=== PATIENT | male | born 1995 | race Caucasian/White ===

== ENCOUNTER 2018-12-15 05:29 | Emergency (ER) | payer OTHER ==
--- OUTSIDE RECORDS SUMMARY | 2018-12-15 05:31 | XMS REPORT ---
:1995 Author Organization [facility] Address [address] [place] [address] [address] [place] [address] Care Team Providers Name Role Phone Unavailable Unavailable Unavailable Problems This patient has no known problems. Allergies, Adverse Reactions, Alerts This patient has no known allergies or adverse reactions. Medications This patient has no known medications. Encounters Start End Encounter Admission Attending Care Care Encounter Date/Time Date/Time Type Type Clinicians Facility Department ID 2017-11-09 2017-11-09 Outpatient [facility] [id number] 00:00:00 00:00:00 2017-10-12 2017-10-12 Outpatient [facility] [id number] 09:24:10 09:24:10
[2018-12-15] MEDS ORDERED: LORAZEPAM 0.5 MG TABLET ONE (06:16)
--- NOTE | 2018-12-15 06:36 | ER ---
Nurse's Notes [facility] Name: Stuart Rodriguez Age: 23 yrs Sex: Male : 1995 Arrival Date: 12/15/2018 Time: 05:31 Bed 8 Private MD: Diagnosis: Anxiety disorder, unspecified Presentation: 12/15 05:41 Presenting complaint: Mother states: Has been having panic attacks. Had another episode tl2 last night at 2130 and couldn't go to sleep. Took 0.25 mg of xanax at 2200 last night. Pt reports chest pain with anxiety. Transition of care: patient was not received from another setting of care. Onset of symptoms was December 14, 2018 at 21:30. Risk Assessment: Do you want to hurt yourself or someone else? Patient reports no desire to harm self or others. Initial Sepsis Screen: Does the patient meet any 2 criteria? No. Patient's initial sepsis screen is negative. Does the patient have a suspected source of infection? No. Patient's initial sepsis screen is negative. Care prior to arrival: None. 05:41 Method Of Arrival: Ambulatory tl2 05:41 Acuity: TESSA 4 tl2 Triage Assessment: 05:44 General: Appears in no apparent distress. uncomfortable, Behavior is cooperative, tl2 appropriate for age, anxious. Pain: Complains of pain in chest Pain currently is 5 out of 10 on a pain scale. Quality of pain is described as pressure. Neuro: Level of Consciousness is awake, alert, obeys commands, Oriented to person, place, time, situation. Cardiovascular: Reports chest pain, Patient's skin is warm and dry. Rhythm is sinus rhythm Chest pain is described as mild, quality is pressure, is aggravated by anxiety. Respiratory: Airway is patent Respiratory effort is even, unlabored, Respiratory pattern is regular, symmetrical. GI: No signs and/or symptoms were reported involving the gastrointestinal system. : No signs and/or symptoms were reported regarding the genitourinary system. Derm: Skin is pink, warm \T\ dry. Historical: - Allergies: 05:44 No Known Allergies; tl2 - Home Meds: 05:44 aspirin 81 mg Oral chew 1 tab as needed [Active]; Xanax 0.25 mg Oral tab twice a day tl2 [Active]; - PMHx: 05:44 Anxiety; Autism; ear infections; Seizures; Pneumonia; tl2 - PSHx: 05:44 Ear Tubes; tl2 - Immunization history:: Adult Immunizations up to date. - Social history:: Smoking status: Patient/guardian denies using tobacco. - Ebola Screening: : No symptoms or risks identified at this time. Screenin:47 Abuse screen: Denies threats or abuse. Nutritional screening: No deficits noted. tl2 Tuberculosis screening: No symptoms or risk factors identified. Fall Risk None identified. Assessment: 05:46 General: see triage assessment. tl2 06:31 Pain: Pain does not radiate. Pain began 0 last night. ak1 Vital Signs: 05:44 BP 118 / 84; Pulse 84; Resp 18; Temp 98.1(O); Pulse Ox 97% on R/A; Weight 113.4 kg; tl2 Height 6 ft. 1 in. (185.42 cm); Pain 5/10; 06:30 BP 111 / 81; Pulse 74; Pulse Ox 97% on R/A; ak1 05:44 Body Mass Index 32.98 (113.40 kg, 185.42 cm) tl2 ED Course: 05:31 Patient arrived in ED. es 05:43 Triage completed. tl2 05:44 Arm band placed on right wrist. tl2 05:47 Patient has correct armband on for positive identification. Placed in gown. Bed in low tl2 position. Call light in reach. Side rails up X 1. Adult w/ patient. Pulse ox on. NIBP on. 05:47 EKG done. Patient maintains SpO2 saturation greater than 95% on room air. tl2 05:59 Aiyana Guzman FNP-C is [facility]. kb 05:59 Owen Adan MD is Attending Physician. kb 06:38 Stefanie Miller, ANA PAULA is Primary Nurse. ak1 06:39 No provider procedures requiring assistance completed. Patient did not have IV access ak1 during this emergency room visit. Administered Medications: 06:07 Drug: Ativan 0.5 mg Route: PO; tl2 06:31 Follow up: Response: No adverse reaction ak1 Outcome: 06:36 Discharge ordered by . kb 06:39 Discharged to home ambulatory, with family. ak1 06:39 Condition: good 06:39 Discharge instructions given to patient, family, Instructed on discharge instructions, follow up and referral plans. Demonstrated understanding of instructions, follow-up care. 06:40 Patient left the ED. ak1 Signatures: Aiyana Guzman, STACEY LA-Madison Escobedo Amber RN RN ak1 Nimco Alford RN RN tl2
--- NOTE | 2018-12-15 06:36 | EDPHYS ---
Physician Documentation [facility] Name: Stuart Rodriguez Age: 23 yrs Sex: Male : 1995 Arrival Date: 12/15/2018 Time: 05:31 Bed 8 Private MD: ED Physician Owen Adan HPI: 12/15 06:06 This 23 yrs old Male presents to ER via Ambulatory with complaints of kb Anxiety, Chest Pain. 06:07 The patient presents to the emergency department with anxiety, great-grandmother kb declining in health. Onset: The symptoms/episode began/occurred last night. Past psychiatric history: Prior diagnosis: anxiety, Psychiatric medications include: Xanax. Associated signs and symptoms: Pertinent positives; anxiety, Pertinent negatives: abdominal pain, chest pain, chills, delusions, depression, fever, hallucinations, headache, homicidal ideation, nausea, night sweats, palpitations, paranoia, shortness of breath, substance abuse, suicide ideation, tremor, vomiting. Severity of symptoms: At their worst the symptoms were mild moderate in the emergency department the symptoms are unchanged. The patient has experienced similar episodes in the past, multiple times, and the symptoms today are exactly the same. The patient has not recently seen a physician. Pt states he is here because he started having a panic attack last night at 2200 and it hasn't let up. Took his prescribed 0.25mg of xanax last night, but it did not help. Grandmother (POA) states his PCP that prescribes the medication told them to come to the ER if the xanax doesn't work instead of trying another tab. . Historical: - Allergies: 05:44 No Known Allergies; tl2 - Home Meds: 05:44 aspirin 81 mg Oral chew 1 tab as needed [Active]; Xanax 0.25 mg Oral tab twice a day tl2 [Active]; - PMHx: 05:44 Anxiety; Autism; ear infections; Seizures; Pneumonia; tl2 - PSHx: 05:44 Ear Tubes; tl2 - Immunization history:: Adult Immunizations up to date. - Social history:: Smoking status: Patient/guardian denies using tobacco. - Ebola Screening: : No symptoms or risks identified at this time. ROS: 06:07 Constitutional: Negative for fever, chills, and weight loss, ENT: Negative for injury, kb pain, and discharge, Neck: Negative for injury, pain, and swelling, Cardiovascular: Negative for chest pain, palpitations, and edema, Respiratory: Negative for shortness of breath, cough, wheezing, and pleuritic chest pain, Abdomen/GI: Negative for abdominal pain, nausea, vomiting, diarrhea, and constipation, Back: Negative for injury and pain, : Negative for injury, bleeding, discharge, and swelling, MS/Extremity: Negative for injury and deformity, Skin: Negative for injury, rash, and discoloration, Neuro: Negative for headache, weakness, numbness, tingling, and seizure. 06:07 Psych: Positive for anxiety, Negative for depression, drug dependence, alcohol dependence, auditory hallucinations, visual hallucinations, homicidal ideation, insomnia, suicide gesture, suicidal ideation. Exam: 06:07 Constitutional: This is a well developed, well nourished patient who is awake, alert, kb and in no acute distress. Head/Face: Normocephalic, atraumatic. Neck: Trachea midline, no thyromegaly or masses palpated, and no cervical lymphadenopathy. Supple, full range of motion without nuchal rigidity, or vertebral point tenderness. No Meningismus. Chest/axilla: Normal chest wall appearance and motion. Nontender with no deformity. No lesions are appreciated. Cardiovascular: Regular rate and rhythm with a normal S1 and S2. No gallops, murmurs, or rubs. Normal PMI, no JVD. No pulse deficits. Respiratory: Lungs have equal breath sounds bilaterally, clear to auscultation and percussion. No rales, rhonchi or wheezes noted. No increased work of breathing, no retractions or nasal flaring. Abdomen/GI: Soft, non-tender, with normal bowel sounds. No distension or tympany. No guarding or rebound. No evidence of tenderness throughout. Skin: Warm, dry with normal turgor. Normal color with no rashes, no lesions, and no evidence of cellulitis. MS/ Extremity: Pulses equal, no cyanosis. Neurovascular intact. Full, normal range of motion. Neuro: Awake and alert, GCS 15, oriented to person, place, time, and situation. Cranial nerves II-XII grossly intact. Motor strength 5/5 in all extremities. Sensory grossly intact. Cerebellar exam normal. Normal gait. Psych: Awake, alert, with orientation to person, place and time. Behavior, mood, and affect are within normal limits. Vital Signs: 05:44 BP 118 / 84; Pulse 84; Resp 18; Temp 98.1(O); Pulse Ox 97% on R/A; Weight 113.4 kg; tl2 Height 6 ft. 1 in. (185.42 cm); Pain 5/10; 06:30 BP 111 / 81; Pulse 74; Pulse Ox 97% on R/A; ak1 05:44 Body Mass Index 32.98 (113.40 kg, 185.42 cm) tl2 MDM: 05:59 Patient medically screened. kb 06:07 Data reviewed: vital signs, nurses notes. Data interpreted: Pulse oximetry: on room air kb is 97 %. Interpretation: normal. Counseling: I had a detailed discussion with the patient and/or guardian regarding: the historical points, exam findings, and any diagnostic results supporting the discharge/admit diagnosis, the need for outpatient follow up, a family practitioner, to return to the emergency department if symptoms worsen or persist or if there are any questions or concerns that arise at home. 03 05:48 Order name: EKG; Complete Time: 05:49 tl2 03 05:48 Order name: EKG - Nurse/Tech; Complete Time: 05:49 tl2 Administered Medications: 06:07 Drug: Ativan 0.5 mg Route: PO; tl2 06:31 Follow up: Response: No adverse reaction ak1 Disposition: 07:05 Co-signature as Attending Physician, Owen Adan MD I agree with the assessment and tw4 plan of care. Disposition: 12/15/18 06:36 Discharged to Home. Impression: Anxiety disorder, unspecified. - Condition is Stable. - Discharge Instructions: Panic Attacks, [id number]. - Medication Reconciliation Form, Thank You Letter, Antibiotic Education, Prescription Opioid Use form. - Follow up: Emergency Department; When: As needed; Reason: Worsening of condition. Follow up: Private Physician; When: 2 - 3 days; Reason: Recheck today's complaints, Continuance of care, Re-evaluation by your physician. Signatures: Aiyana Guzman FNP-C FNP-Stefanie Scales RN RN ak1 Nimco Alford RN RN tl2 Owen Adan MD MD tw4 Corrections: (The following items were deleted from the chart) 06:40 06:36 12/15/2018 06:36 Discharged to Home. Impression: Anxiety disorder, unspecified. ak1 Condition is Stable. Discharge Instructions: Panic Attacks, [id number]. Forms are Medication Reconciliation Form, Thank You Letter, Antibiotic Education, Prescription Opioid Use. Follow up: Emergency Department; When: As needed; Reason: Worsening of condition. Follow up: Private Physician; When: 2 - 3 days; Reason: Recheck today's complaints, Continuance of care, Re-evaluation by your physician. kb
--- NOTE | 2018-12-15 21:44 | EKG ---
Test Date: 2018-12-15 Test Time: 04:41:56 Family Preservation Officer: AMBER MEASUREMENT RESULTS: Intervals: Rate: 77 CO: 140 QRSD: 102 QT: 390 QTc: 441 [place]: P: 45 CO: 140 QRS: 51 T: 44 INTERPRETIVE STATEMENTS: Normal sinus rhythm with sinus arrhythmia Incomplete right bundle branch block Borderline ECG Compared to ECG 10/28/2017 03:05:27 No significant changes Electronically Signed On 12-15-18 21:44:08 CDT by Maciel Garcia
== END 2018-12-15 06:40 | disposition home or self-care (01) ==
LOC: ER 05:29
DX: F41.9 Anxiety disorder, unspecified (principal); G40.909 Epilepsy, unspecified, not intractable, without status epilepticus; Z79.82 Long term (current) use of aspirin
CPT/HCPCS: 93005; 99284

== ENCOUNTER 2019-05-09 21:45 | Emergency (ER) | payer OTHER ==
--- OUTSIDE RECORDS SUMMARY | 2019-05-09 21:47 | XMS REPORT ---
:1995 [facility] Address [facility] [address] [place] [id number] Care Team Providers Name Role Phone Unavailable Unavailable Unavailable Problems This patient has no known problems. Allergies, Adverse Reactions, Alerts This patient has no known allergies or adverse reactions. Medications This patient has no known medications. Encounters Start End Encounter Admission Attending Care Care Encounter Date/Time Date/Time Type Type Clinicians Facility Department ID 2017-11-09 2017-11-09 Outpatient [facility] [id number] 00:00:00 00:00:00 2017-10-12 2017-10-12 Outpatient [facility] [id number] 09:24:10 09:24:10
--- NOTE | 2019-05-09 23:39 | ER ---
Nurse's Notes [facility] Name: Stuart Rodriguez Age: 23 yrs Sex: Male : 1995 Arrival Date: 05/09/2019 Time: 21:49 Bed 5 Private MD: Diagnosis: Ingrowing nail Presentation: 05/09 22:15 Presenting complaint: Mother states: that pt has infection to right great toe for the fc past week. Unable to wear boots to work so he needs a note. Has seen foot already for this issue. Transition of care: patient was not received from another setting of care. Onset of symptoms was May 03, 2019. Risk Assessment: Do you want to hurt yourself or someone else? Patient reports no desire to harm self or others. Initial Sepsis Screen: Does the patient meet any 2 criteria? No. Patient's initial sepsis screen is negative. Does the patient have a suspected source of infection? No. Patient's initial sepsis screen is negative. Care prior to arrival: None. 22:15 Method Of Arrival: Ambulatory fc 22:15 Acuity: TESSA 3 Triage Assessment: 22:19 General: Appears comfortable, obese, Behavior is calm, cooperative, appropriate for age. Pain: Complains of pain in Right first toenail Quality of pain is described as aching, throbbing, Pain began 1 week ago Is continuous, Aggravated by increased activity, repositioning, weight bearing. EENT: No deficits noted. Neuro: Level of Consciousness is awake, alert, obeys commands, Oriented to person, place, time, situation, Appropriate for age. Cardiovascular: No deficits noted. Respiratory: No deficits noted. GI: No deficits noted. : No deficits noted. Derm: Skin is pink, warm \T\ dry. Derm: Reports drainage and redness to right great toe. Musculoskeletal: Circulation, motion, and sensation intact. Capillary refill Range of motion: intact in all extremities. Historical: - Allergies: 22:18 No Known Allergies; fc - Home Meds: 22:18 Xanax 0.25 mg Oral tab twice a day [Active]; aspirin 81 mg Oral chew 1 tab as needed fc [Active]; - PMHx: 22:18 Anxiety; ear infections; Autism; Seizures; Pneumonia; fc - PSHx: 22:18 Ear Tubes; fc - Immunization history:: Last tetanus immunization: up to date. - Social history:: Smoking status: Patient/guardian denies using tobacco, Patient/guardian denies using alcohol, street drugs. - Ebola Screening: : Patient negative for fever greater than or equal to 101.5 degrees Fahrenheit, and additional compatible Ebola Virus Disease symptoms Patient denies exposure to infectious person Patient denies travel to an Ebola-affected area in the 21 days before illness onset. - Family history:: not pertinent. Screenin:12 Abuse screen: Denies threats or abuse. Nutritional screening: No deficits noted. jd3 Tuberculosis screening: No symptoms or risk factors identified. Fall Risk Ambulatory Aid- None/Bed Rest/Nurse Assist (0 pts). Gait- Normal/Bed Rest/Wheelchair (0 pts) Mental Status- Oriented to own ability (0 pts). Total Alonzo Fall Scale indicates No Risk (0-24 pts). Assessment: 23:09 General: Appears in no apparent distress. uncomfortable, Behavior is calm, cooperative, jd3 appropriate for age. Pain: Complains of pain in Right first toenail Quality of pain is described as aching, throbbing. Neuro: Level of Consciousness is awake, alert, obeys commands, Oriented to person, place, time, situation. Cardiovascular: Capillary refill < 3 seconds Patient's skin is warm and dry. Respiratory: Airway is patent Respiratory effort is even, unlabored, Respiratory pattern is regular, symmetrical. GI: No signs and/or symptoms were reported involving the gastrointestinal system. : No signs and/or symptoms were reported regarding the genitourinary system. EENT: No signs and/or symptoms were reported regarding the EENT system. Derm: Skin is intact, Skin is dry, Skin is normal, Skin temperature is warm Wound noted Right first toenail Wound is oozing, red swollen wound from the side of the toenail. Musculoskeletal: Circulation, motion, and sensation intact. Range of motion: intact in all extremities. 05/10 00:00 Reassessment: Patient appears in no apparent distress at this time. Patient and/or jd3 family updated on plan of care and expected duration. Pain level reassessed. Patient is alert, oriented x 3, equal unlabored respirations, skin warm/dry/pink. reported understanding of discharge instructions. Vital Signs: 05/09 22:18 BP 110 / 75; Pulse 83; Resp 18; Temp 97.5(O); Pulse Ox 96% on R/A; Weight 117.93 kg fc (R); Height 6 ft. 1 in. (185.42 cm) (R); Pain 4/10; 22:18 Body Mass Index 34.30 (117.93 kg, 185.42 cm) ED Course: 21:49 Patient arrived in ED. ag3 22:17 Triage completed. 22:18 Arm band placed on Patient placed in waiting room, Patient notified of wait time. 23:02 Parker Nolasco MD is Attending Physician. mariely 23:06 Roberto Hernandez, RN is Primary Nurse. jd3 23:12 Patient has correct armband on for positive identification. Bed in low position. Call jd3 light in reach. Side rails up X 1. Adult w/ patient. 05/10 00:00 No provider procedures requiring assistance completed. Patient did not have IV access jd3 during this emergency room visit. Administered Medications: 00:00 Drug: Bactroban Ointment 2 % 1 application Route: Topical; Site: affected area; 00:00 Drug: Bactrim (160 mg-800 mg (DS) 1 tablet Route: PO; Outcome: 05/09 23:39 [facility] 05/10 00:00 Discharged to home ambulatory, with family. jd3 Condition: stable Discharge instructions given to patient, family, Instructed on discharge instructions, follow up and referral plans. medication usage, Demonstrated understanding of instructions, follow-up care, medications, Prescriptions given X 3. 00:01 Patient left the ED. Signatures: Parker Nolasco MD MD cha Chretien, Felicia, RN RN Roberto Hernandez, RN RN Oanh Balderrama 3
--- NOTE | 2019-05-09 23:40 | EDPHYS ---
Physician Documentation [facility] Name: Stuart Rodriguez Age: 23 yrs Sex: Male : 1995 Arrival Date: 05/09/2019 Time: 21:49 Bed 5 Private MD: LANRE Physician Parker Nolasco HPI: 05/09 23:32 This 23 yrs old Male presents to ER via Ambulatory with complaints of Toe mariely Injury. 23:32 The patient presents with an injury, pain, swelling, tenderness. The complaints affect mariely the right foot, right foot. Context: The problem was sustained at home, resulted from stubbing toe on. Onset: The symptoms/episode began/occurred 3 day(s) ago. Modifying factors: The symptoms are alleviated by elevation of extremity, the symptoms are aggravated by nothing. Associated signs and symptoms: The patient has no apparent associated signs or symptoms. Severity of symptoms: At their worst the symptoms were mild, in the emergency department the symptoms are unchanged. The patient has not experienced similar symptoms in the past. Historical: - Allergies: 22:18 No Known Allergies; fc - Home Meds: 22:18 Xanax 0.25 mg Oral tab twice a day [Active]; aspirin 81 mg Oral chew 1 tab as needed fc [Active]; - PMHx: 22:18 Anxiety; ear infections; Autism; Seizures; Pneumonia; fc - PSHx: 22:18 Ear Tubes; fc - Immunization history:: Last tetanus immunization: up to date. - Social history:: Smoking status: Patient/guardian denies using tobacco, Patient/guardian denies using alcohol, street drugs. - Ebola Screening: : Patient negative for fever greater than or equal to 101.5 degrees Fahrenheit, and additional compatible Ebola Virus Disease symptoms Patient denies exposure to infectious person Patient denies travel to an Ebola-affected area in the 21 days before illness onset. - Family history:: not pertinent. ROS: 23:32 Constitutional: Negative for fever, chills, and weight loss, Eyes: Negative for injury, mariely pain, redness, and discharge, ENT: Negative for injury, pain, and discharge, Neck: Negative for injury, pain, and swelling, Cardiovascular: Negative for chest pain, palpitations, and edema, Respiratory: Negative for shortness of breath, cough, wheezing, and pleuritic chest pain, Abdomen/GI: Negative for abdominal pain, nausea, vomiting, diarrhea, and constipation, Back: Negative for injury and pain, : Negative for injury, bleeding, discharge, and swelling, Skin: Negative for injury, rash, and discoloration, Neuro: Negative for headache, weakness, numbness, tingling, and seizure, Psych: Negative for depression, anxiety, suicide ideation, homicidal ideation, and hallucinations, Allergy/Immunology: Negative for hives, rash, and allergies, Endocrine: Negative for neck swelling, polydipsia, polyuria, polyphagia, and marked weight changes. 23:32 MS/extremity: Positive for decreased range of motion, pain, swelling, tenderness, of the Right first toenail. Exam: 23:32 Constitutional: This is a well developed, well nourished patient who is awake, alert, mariely and in no acute distress. Head/Face: Normocephalic, atraumatic. Eyes: Pupils equal round and reactive to light, extra-ocular motions intact. Lids and lashes normal. Conjunctiva and sclera are non-icteric and not injected. Cornea within normal limits. Periorbital areas with no swelling, redness, or edema. ENT: Nares patent. No nasal discharge, no septal abnormalities noted. Tympanic membranes are normal and external auditory canals are clear. Oropharynx with no redness, swelling, or masses, exudates, or evidence of obstruction, uvula midline. Mucous membranes moist. Neck: Trachea midline, no thyromegaly or masses palpated, and no cervical lymphadenopathy. Supple, full range of motion without nuchal rigidity, or vertebral point tenderness. No Meningismus. Chest/axilla: Normal chest wall appearance and motion. Nontender with no deformity. No lesions are appreciated. Cardiovascular: Regular rate and rhythm with a normal S1 and S2. No gallops, murmurs, or rubs. Normal PMI, no JVD. No pulse deficits. Respiratory: Lungs have equal breath sounds bilaterally, clear to auscultation and percussion. No rales, rhonchi or wheezes noted. No increased work of breathing, no retractions or nasal flaring. Abdomen/GI: Soft, non-tender, with normal bowel sounds. No distension or tympany. No guarding or rebound. No evidence of tenderness throughout. Back: No spinal tenderness. No costovertebral tenderness. Full range of motion. Male : Normal genitalia with no discharge or lesions. Skin: Warm, dry with normal turgor. Normal color with no rashes, no lesions, and no evidence of cellulitis. Neuro: Awake and alert, GCS 15, oriented to person, place, time, and situation. Cranial nerves II-XII grossly intact. Motor strength 5/5 in all extremities. Sensory grossly intact. Cerebellar exam normal. Normal gait. Psych: Awake, alert, with orientation to person, place and time. Behavior, mood, and affect are within normal limits. 23:32 Musculoskeletal/extremity: Extremities: noted in the Right first toenail: decreased ROM, erythema, pain. Vital Signs: 22:18 BP 110 / 75; Pulse 83; Resp 18; Temp 97.5(O); Pulse Ox 96% on R/A; Weight 117.93 kg (R); Height 6 ft. 1 in. (185.42 cm) (R); Pain 4/10; 22:18 Body Mass Index 34.30 (117.93 kg, 185.42 cm) MDM: 23:02 Patient medically screened. [facility] 23:36 Data reviewed: vital signs, nurses notes. [facility] 05/09 23:32 Order name: Post-op shoe; Complete Time: 00:01 [facility] Administered Medications: 05/10 00:00 Drug: Bactroban Ointment 2 % 1 application Route: Topical; Site: affected area; 00:00 Drug: Bactrim (160 mg-800 mg (DS) 1 tablet Route: PO; Disposition: 05/09/19 23:39 Discharged to Home. Impression: Ingrowing nail. - Condition is Stable. - Discharge Instructions: Ingrown Toenail. - Prescriptions for Bactroban 2 % Topical Ointment - Apply to affected area 1 application by TOPICAL route every 12 hours; 30 gram. Ibuprofen 600 mg Oral Tablet - take 1 tablet by ORAL route every 8 hours As needed take with food; 21 tablet. Bactrim DS 800- 160 mg Oral Tablet - take 1 tablet by ORAL route every 12 hours for 10 days; 20 tablet. - Work release form, Medication Reconciliation Form, Thank You Letter, Antibiotic Education, Prescription Opioid Use form. - Follow up: Private Physician; When: 2 - 3 days; Reason: Recheck today's complaints, Continuance of care, Re-evaluation by your physician. - Problem is new. - Symptoms have improved. Signatures: Parker Nolasco MD MD cha Chretien, Felicia RN RN fc Corrections: (The following items were deleted from the chart) 00:01 08 23:39 05/09/2019 23:39 Discharged to Home. Impression: Ingrowing nail. Condition fc is Stable. Forms are Medication Reconciliation Form, Thank You Letter, Antibiotic Education, Prescription Opioid Use. Follow up: Private Physician; When: 2 - 3 days; Reason: Recheck today's complaints, Continuance of care, Re-evaluation by your physician. Problem is new. Symptoms have improved. mariely
[2019-05-09] MEDS ORDERED: SMZ./TMP. 800/160 MG TABLET ONE (23:51)
[2019-05-09] MEDS ORDERED: MUPIROCIN 2% OINT 22GM TUBE TOP ONE (23:51)
== END 2019-05-10 00:01 | disposition home or self-care (01) ==
LOC: ER 21:45
DX: L60.0 Ingrowing nail (principal); F41.9 Anxiety disorder, unspecified; Z79.82 Long term (current) use of aspirin
CPT/HCPCS: 99283

== ENCOUNTER 2019-09-01 11:58 | Emergency (ER) | payer OTHER ==
--- OUTSIDE RECORDS SUMMARY | 2019-09-01 12:00 | XMS REPORT ---
:1995 [facility] [address] [place] [id number] Care Team Providers Name Role Phone Unavailable Unavailable Unavailable Problems This patient has no known problems. Allergies, Adverse Reactions, Alerts This patient has no known allergies or adverse reactions. Medications This patient has no known medications. Encounters Start End Encounter Admission Attending Care Care Encounter Date/Time Date/Time Type Type Clinicians Facility Department ID 2017-11-09 2017-11-09 Outpatient [facility] [id number] 00:00:00 00:00:00 2017-10-12 2017-10-12 Outpatient [facility] [id number] 09:24:10 09:24:10
[2019-09-01] MEDS ORDERED: PANTOPRAZOLE 40 MG INJ ONE (14:12)
[2019-09-01] MEDS ORDERED: LIDOCAINE VISCOUS 2% SOLN 15 ML UDC ONE (14:12)
[2019-09-01] MEDS ORDERED: MAGNE/ALUM HYDROXD 30 ML UCUP ONE (14:12)
[2019-09-01 14:27] LABS: Absolute Lymphocytes (CBC) 2.7 K/uL (0.7-4.9); Basophils % 0.5 % (0-1.3); Hematocrit 43.6 % (39.6-49.0); Lymphocytes % 32.2 % (15.3-44.8); MPV 8.9 fL (7.6-11.3); RBC Red Blood Cell Count 4.97 M/uL (4.33-5.43)
[2019-09-01 14:49] LABS: ALT/SGPT 61 U/L (12-78); AST/SGOT 29 U/L (15-37); Albumin 3.9 g/dL (3.4-5.0); Alkaline Phosphatase 87 U/L (45-117); BUN Blood Urea Nitrogen 13 mg/dL (7-18); Bicarbonate 25 mmol/L (21-32); Bilirubin Direct 0.2 mg/dL (0-0.2); Bilirubin Total 0.4 mg/dL (0.2-1.0); Glucose Level 87 mg/dL (74-106); Lipase 137 U/L (73-393); Potassium 3.9 mmol/L (3.5-5.1); Protein, Total 7.1 g/dL (6.4-8.2); Sodium Level 143 mmol/L (136-145)
--- NOTE | 2019-09-01 15:31 | ER ---
Nurse's Notes [facility] Name: Stuart Rodriguez Age: 24 yrs Sex: Male : 1995 Arrival Date: 09/01/2019 Time: 12:00 Bed 8 Private MD: Diagnosis: Gastritis, unspecified, without bleeding Presentation: 09/01 12:06 Presenting complaint: Patient states: abd pain, gerd, pain in chest for the last few la1 days. Transition of care: patient was not received from another setting of care. Onset of symptoms was September 01, 2019. Risk Assessment: Do you want to hurt yourself or someone else? Patient reports no desire to harm self or others. Initial Sepsis Screen: Does the patient meet any 2 criteria? No. Patient's initial sepsis screen is negative. Does the patient have a suspected source of infection? No. Patient's initial sepsis screen is negative. Care prior to arrival: None. 12:06 Method Of Arrival: Ambulatory la1 12:06 Acuity: TESSA 3 la1 Historical: - Allergies: 12:06 No Known Allergies; la1 - Home Meds: 13:46 aspirin 81 mg Oral chew 1 tab as needed [Active]; Xanax 0.25 mg Oral tab twice a day tw2 [Active]; - PMHx: 12:06 Anxiety; Autism; ear infections; Pneumonia; Seizures; la1 - PSHx: 13:46 Ear Tubes; tw2 - Immunization history:: Adult Immunizations up to date. - Social history:: Smoking status: Patient/guardian denies using tobacco. - Ebola Screening: : No symptoms or risks identified at this time. Screenin:46 Abuse screen: Denies threats or abuse. Nutritional screening: No deficits noted. tw2 Tuberculosis screening: No symptoms or risk factors identified. Fall Risk None identified. Assessment: 13:46 Pain: Pain does not radiate. Pain began 2-3 days ago. Cardiovascular: Reports chest tw2 pain. 13:54 General: Appears in no apparent distress. Behavior is calm, cooperative, appropriate tw2 for age. Neuro: Level of Consciousness is awake, alert, obeys commands, Oriented to person, place, time, situation. Cardiovascular: Reports chest pain, Heart tones S1 S2 Patient's skin is warm and dry. Respiratory: Airway is patent Respiratory effort is even, unlabored, Respiratory pattern is regular, symmetrical, Breath sounds are clear bilaterally. GI: Abdomen is flat, Bowel sounds present X 4 quads. Reports indigestion. : No signs and/or symptoms were reported regarding the genitourinary system. EENT: No signs and/or symptoms were reported regarding the EENT system. Derm: No signs and/or symptoms reported regarding the dermatologic system. Musculoskeletal: Range of motion: intact in all extremities. 15:25 Reassessment: Patient appears in no apparent distress at this time. Patient and/or tw2 family updated on plan of care and expected duration. Pain level reassessed. Patient is alert, oriented x 3, equal unlabored respirations, skin warm/dry/pink. Patient states feeling better. Patient states symptoms have improved. 15:39 Reassessment: Patient appears in no apparent distress at this time. Patient and/or tw2 family updated on plan of care and expected duration. Pain level reassessed. Patient is alert, oriented x 3, equal unlabored respirations, skin warm/dry/pink. Vital Signs: 12:06 BP 111 / 82; Pulse 97; Resp 16; Temp 97.5; Pulse Ox 100% on R/A; Weight 117.93 kg; la1 Height 6 ft. 1 in. (185.42 cm); 13:53 BP 124 / 76; Pulse 71; Resp 17; Pulse Ox 97% on R/A; tw2 15:24 BP 103 / 72; Pulse 67; Resp 17; Pulse Ox 95% on R/A; tw2 12:06 Body Mass Index 34.30 (117.93 kg, 185.42 cm) la1 ED Course: 12:00 Patient arrived in ED. as 12:06 Triage completed. la1 12:07 Arm band placed on left wrist. la1 13:45 Natacha Enriquez, RN is Primary Nurse. tw2 13:46 Bed in low position. Call light in reach. case monitor on. Pulse ox on. NIBP on. tw2 13:46 Patient maintains SpO2 saturation greater than 95% on room air. tw2 13:47 Adult w/ patient. tw2 13:51 Brandyn Harris PA is PHCP. jr8 13:51 Vick Mckeon MD is Attending Physician. jr8 14:15 Inserted saline lock: 22 gauge in right antecubital area, using aseptic technique. tw2 ,using aseptic technique. mila Rich RN Blood collected. 15:29 Albert Sutherland MD is Referral Physician. jr8 15:38 No provider procedures requiring assistance completed. IV discontinued, intact, tw2 bleeding controlled, No redness/swelling at site. Pressure dressing applied. Administered Medications: 14:18 Drug: ProTONIX 40 mg Route: IVP; Site: right antecubital; tw2 15:38 Follow up: Response: No adverse reaction; Marked relief of symptoms tw2 14:20 Drug: GI Cocktail without - (Maalox Suspension 30 ml, Lidocaine Liquid 2 % 15 tw2 ml) Route: PO; 15:38 Follow up: Response: No adverse reaction; Marked relief of symptoms tw2 Outcome: 15:30 Discharge ordered by . jr8 15:38 Discharged to home ambulatory, with family. tw2 15:38 Condition: stable 15:38 Discharge instructions given to patient, family, Instructed on discharge instructions, follow up and referral plans. medication usage, Demonstrated understanding of instructions, follow-up care, medications, Prescriptions given X 1. 15:39 Patient left the ED. tw2 Signatures: Stephanie Gonsales Josh, PA PA jr8 Kevin Monge RN RN la1 Natacha Enriquez RN RN tw2 Corrections: (The following items were deleted from the chart) 14:26 14:15 Inserted saline lock: 22 gauge in right antecubital area, using aseptic tw2 technique. Blood collected. tw2
--- NOTE | 2019-09-01 15:31 | EDPHYS ---
Physician Documentation [facility] Name: Stuart Rodriguez Age: 24 yrs Sex: Male : 1995 Arrival Date: 09/01/2019 Time: 12:00 Bed 8 Private MD: ED Physician Vick Mckeon HPI: 09/01 15:09 This 24 yrs old Male presents to ER via Ambulatory with complaints of Chest jr8 Pain, Abdominal Pain. 15:09 The patient presents with abdominal pain in the epigastric area. Onset: The jr8 symptoms/episode began/occurred acutely, yesterday. The symptoms do not radiate. Associated signs and symptoms: Pertinent positives: nausea and vomiting, indigestion. The symptoms are described as burning. Modifying factors: The symptoms are alleviated by nothing, the symptoms are aggravated by nothing. Severity of pain: At its worst the pain was moderate in the emergency department the pain is unchanged. The patient has not experienced similar symptoms in the past. The patient has not recently seen a physician. 15:16 Patient feels that he is having reflux and indigestion. Now having epigastric pain . jr8 Historical: - Allergies: 12:06 No Known Allergies; la1 - Home Meds: 13:46 aspirin 81 mg Oral chew 1 tab as needed [Active]; Xanax 0.25 mg Oral tab twice a day tw2 [Active]; - PMHx: 12:06 Anxiety; Autism; ear infections; Pneumonia; Seizures; la1 - PSHx: 13:46 Ear Tubes; tw2 - Immunization history:: Adult Immunizations up to date. - Social history:: Smoking status: Patient/guardian denies using tobacco. - Ebola Screening: : No symptoms or risks identified at this time. ROS: 15:09 Eyes: Negative for injury, pain, redness, and discharge, ENT: Negative for injury, jr8 pain, and discharge, Neck: Negative for injury, pain, and swelling, Cardiovascular: Negative for chest pain, palpitations, and edema, Respiratory: Negative for shortness of breath, cough, wheezing, and pleuritic chest pain, Back: Negative for injury and pain, MS/Extremity: Negative for injury and deformity, Skin: Negative for injury, rash, and discoloration, Neuro: Negative for headache, weakness, numbness, tingling, and seizure. 15:09 Abdomen/GI: Positive for abdominal pain, nausea and vomiting, Negative for constipation, abdominal cramps, abdominal distension, anorexia, dysphagia, hematemesis, black/tarry stool, rectal pain, rectal bleeding, bowel incontinence, flatulence. Exam: 15:09 Eyes: Pupils equal round and reactive to light, extra-ocular motions intact. Lids and jr8 lashes normal. Conjunctiva and sclera are non-icteric and not injected. Cornea within normal limits. Periorbital areas with no swelling, redness, or edema. ENT: Nares patent. No nasal discharge, no septal abnormalities noted. Tympanic membranes are normal and external auditory canals are clear. Oropharynx with no redness, swelling, or masses, exudates, or evidence of obstruction, uvula midline. Mucous membranes moist. Neck: Trachea midline, no thyromegaly or masses palpated, and no cervical lymphadenopathy. Supple, full range of motion without nuchal rigidity, or vertebral point tenderness. No Meningismus. Cardiovascular: Regular rate and rhythm with a normal S1 and S2. No gallops, murmurs, or rubs. Normal PMI, no JVD. No pulse deficits. Respiratory: Lungs have equal breath sounds bilaterally, clear to auscultation and percussion. No rales, rhonchi or wheezes noted. No increased work of breathing, no retractions or nasal flaring. Abdomen/GI: Soft, non-tender, with normal bowel sounds. No distension or tympany. No guarding or rebound. No evidence of tenderness throughout. Back: No spinal tenderness. No costovertebral tenderness. Full range of motion. Skin: Warm, dry with normal turgor. Normal color with no rashes, no lesions, and no evidence of cellulitis. MS/ Extremity: Pulses equal, no cyanosis. Neurovascular intact. Full, normal range of motion. Neuro: Awake and alert, GCS 15, oriented to person, place, time, and situation. Cranial nerves II-XII grossly intact. Motor strength 5/5 in all extremities. Sensory grossly intact. Cerebellar exam normal. Normal gait. Vital Signs: 12:06 BP 111 / 82; Pulse 97; Resp 16; Temp 97.5; Pulse Ox 100% on R/A; Weight 117.93 kg; la1 Height 6 ft. 1 in. (185.42 cm); 13:53 BP 124 / 76; Pulse 71; Resp 17; Pulse Ox 97% on R/A; tw2 15:24 BP 103 / 72; Pulse 67; Resp 17; Pulse Ox 95% on R/A; tw2 12:06 Body Mass Index 34.30 (117.93 kg, 185.42 cm) la1 MDM: 13:51 Patient medically screened. [facility] 15:27 Data reviewed: vital signs, nurses notes, lab test result(s), EKG, and as a result, I jr8 will discharge patient. Data interpreted: Pulse oximetry: on room air is 95 %. Interpretation: normal. Counseling: I had a detailed discussion with the patient and/or guardian regarding: the historical points, exam findings, and any diagnostic results supporting the discharge/admit diagnosis, lab results. Counseling: I had a detailed discussion with the patient and/or guardian regarding: the need for outpatient follow up, a tobacco sprayer, to return to the emergency department if symptoms worsen or persist or if there are any questions or concerns that arise at home. Response to treatment: the patient's symptoms have resolved after treatment. 09/01 14:07 Order name: Basic Metabolic Panel; Complete Time: 15:17 09/01 14:07 Order name: CBC with Diff; Complete Time: 15: [facility] 09/01 14:07 Order name: Creatinine for Radiology; Complete Time: 15: [facility] 09/01 14:07 Order name: Hepatic Function; Complete Time: 15:17 [facility] 09/01 14:07 Order name: Lipase; Complete Time: 15:17 [facility] 09/01 15:08 Order name: Urine Dipstick--Ancillary (enter results) 09/01 14:07 Order name: IV Saline Lock; Complete Time: 14:19 09/01 14:07 Order name: Labs collected and sent; Complete Time: 14:19 [facility] 09/01 14:07 Order name: EKG; Complete Time: 14:08 [facility] 09/01 14:07 Order name: EKG - Nurse/Tech; Complete Time: 14: Administered Medications: 14:18 Drug: ProTONIX 40 mg Route: IVP; Site: right antecubital; tw2 15:38 Follow up: Response: No adverse reaction; Marked relief of symptoms tw2 14:20 Drug: GI Cocktail without - (Maalox Suspension 30 ml, Lidocaine Liquid 2 % 15 tw2 ml) Route: PO; 15:38 Follow up: Response: No adverse reaction; Marked relief of symptoms tw2 Disposition: 09/01/19 15:30 Discharged to Home. Impression: Gastritis, unspecified, without bleeding. - Condition is Stable. - Discharge Instructions: Gastritis, Adult. - Prescriptions for omeprazole 40 mg Oral capsule,delayed release(DR/EC) - take 1 capsule by ORAL route once daily before a meal; 30 capsule. - Medication Reconciliation Form, Thank You Letter, Antibiotic Education, Prescription Opioid Use form. - Follow up: Albert Sutherland MD; When: 7 - 10 days; Reason: Recheck today's complaints, Continuance of care, Re-evaluation by your physician. - Problem is new. - Symptoms have improved. Signatures: Dispatcher [employer] EDMS Brandyn Harris PA PA jr8 Kevin Monge RN RN la1 Natacha Enriquez RN RN tw2 Corrections: (The following items were deleted from the chart) 15:39 15:30 09/01/2019 15:30 Discharged to Home. Impression: Gastritis, unspecified, without tw2 bleeding. Condition is Stable. Forms are Medication Reconciliation Form, Thank You Letter, Antibiotic Education, Prescription Opioid Use. Follow up: Albert Sutherland; When: 7 - 10 days; Reason: Recheck today's complaints, Continuance of care, Re-evaluation by your physician. Problem is new. Symptoms have improved. jr8
[2019-09-01 15:54] LABS: Urine Blood NEGATIVE (NEG); Urine Glucose NEGATIVE (NEG); Urine Protein NEGATIVE (NEG); Urine pH 8.5 (5.0-7.0)
--- NOTE | 2019-09-01 16:29 | EKG ---
Test Date: 2019-09-01 Test Time: 14:09:59 [employer] Barges Loader: TROY MEASUREMENT RESULTS: Intervals: Rate: 60 MO: 144 QRSD: 100 QT: 418 QTc: 418 Davis: P: 33 MO: 144 QRS: 26 T: 32 INTERPRETIVE STATEMENTS: Normal sinus rhythm with sinus arrhythmia Normal ECG Compared to ECG 12/15/2018 04:41:56 Incomplete right bundle-branch block no longer present Electronically Signed On 09-01-19 16:29:22 [employer]PERSM[employer] APPRENTICE by Maciel Garcia
[2019-09-01 18:19] VITALS: TEMP 97.5
[2019-09-01 18:24] VITALS: BP 103/72; O2SAT 95
== END 2019-09-01 15:39 | disposition home or self-care (01) ==
LOC: ER 11:58
DX: K29.70 Gastritis, unspecified, without bleeding (principal); F41.9 Anxiety disorder, unspecified; Z79.82 Long term (current) use of aspirin
CPT/HCPCS: 93005; 85025; 80048; 36415; 80076; 81003; 83690; 96374; 99285; C9113

== ENCOUNTER 2020-02-09 21:08 | Emergency (ER) | payer OTHER ==
--- OUTSIDE RECORDS SUMMARY | 2020-02-09 21:21 | XMS REPORT | Encounter Summary ---
:1995 Author Reason for Visit problem visit Instructions 1. Esophageal dysphagia upper endoscopy procedure (EGD) (PROC) 2. Gastroesophageal reflux disea se without esophagitis omeprazole 20 mg capsule,d elayed release 3. [place] diet Discussion Note: None recorded.Patient educational handouts: No information available. Plan of Care Reminders Provider Appointments None recorded. Lab None recorded. Referral None recorded. Procedures Upper Endoscopy Procedure 10/21/2019 (EGD) (PROC) Surgeries None recorded. Imaging None recorded. Medications Name Start Date alprazolam 0.25 mg tablet Take 2 tablets twice a day by oral route for 25 days. ibuprofen 600 mg tablet omeprazole 20 mg capsule,delayed release Take 1 capsule every day by oral route for 90 days. omeprazole 40 mg capsule,delayed release Medications Administered None recorded. Vitals Height Weight BMI Blood Pressure 6 ft 1 in 278.8 lbs 36.8 kg/m2 133/87 mm[Hg] Results Lab Results None recorded. Allergies Code Code System Name Reaction Severity Status Onset NKDA Problems Name Status Onset Date Source Autistic Disorder Active 10/21/2019 Anxiety Active 10/21/2019 Procedures Date Name Performed by Extraction of [place] Tooth Information n ot available Repair of Cleft Palate Information not a vailable Myringotomy and Insertion of Tympanic In formation not available Ventilation Tube Vaccine List None recorded. Social History Tobacco Smoking Status Never Smoker Past Encounters 10/21/2019 Esophageal Dysphagia; Gastroesophageal R eflux Disease without Esophagitis; [place] Diet Sanjay Martinez MD: [id number] [facility], [address], [place] [address], Ph. History of Present Illness Note: <p>acid reflux</p><p>24 y/o WM grandson of my prior pt who is referred by Dr. Morton for GERD. This began in Sep with burning CP radiating into throat. He went to ER and got relief with GI cocktail and was prescribed omeprazole. This works but he has immediate return if he doesn't take it. He has had dysphagia without vomiting or wt loss. He denies abd pain, melena, use of NSAIDS/abx/steroids.</p>Review of Systems: ROS as noted in the HPI Review of Systems None recorded. Physical Exam General Adult Exam Reported By: Patient Constitutional: General Appearance: healthy- appearing, well-nourished, well-developed. Level of Dis tress: NAD. Ambulation: ambulating normally Head: Head: normocephalic, atrauma tic Eyes: Lids and Conjunctivae: non-i njected. Sclerae: non-icteric ENMT: Nose: nares patent. Lips, Te eth, and Gums: no mouth or lip ulcers. Oropharynx: moist mucous mem branes Neck: Neck: supple, no masses Lungs: Auscultation: breath sounds normal, good air movement, CTA except as noted, no wheezing, no ra les/crackles, no rhonchi Cardiovascular: Heart Auscultation: RRR, no murmurs Abdomen: Bowel Sounds: normal. Inspec tion and Palpation: soft, non-distended, no tenderness , no guarding, no rebound tenderness, no masses. Liver: non-tender , no hepatomegaly. Spleen: no splenomegaly. Hernia: none p alpable Musculoskeletal:: Joints, Bones, and Muscles: normal movement of all extremities. Extremities: no edema
--- OUTSIDE RECORDS SUMMARY | 2020-02-09 21:21 | XMS REPORT | Encounter Summary ---
:1995 Author Reason for Visit None recorded. Instructions 1. Acute gastritis Discussion Note: None recorded.Patient educational handouts: No information available. Plan of Care Reminders Provider Appointments None recorded. Lab None recorded. Referral None recorded. Procedures None recorded. Surgeries None recorded. Imaging None recorded. Medications Name Start Date alprazolam 0.25 mg tablet Take 2 tablets twice a day by oral route for 25 days. ibuprofen 600 mg tablet omeprazole 20 mg capsule,delayed release TAKE ONE (1) CAPSULE(S) BY MOUTHONCE A DAY. omeprazole 40 mg capsule,delayed release Medications Administered None recorded. Vitals Height Weight BMI Blood Pressure 6 ft 1 in 277.6 lbs 36.6 kg/m2 116/90 mm[Hg] Results Lab Results None recorded. Allergies Code Code System Name Reaction Severity Status Onset NKDA Problems Name Status Onset Date Source Autistic Disorder Active 10/21/2019 Anxiety Active 10/21/2019 Procedures Date Name Performed by 10/30/2019 Biopsy of Stomach Information not avai lable Extraction of [place] Tooth Information n ot available Repair of Cleft Palate Information not a vailable Myringotomy and Insertion of Tympanic In formation not available Ventilation Tube Vaccine List None recorded. Social History Tobacco Smoking Status Never Smoker Past Encounters 11/18/2019 Acute Gastritis Sanjay Martinez MD: [id number] [address], [facility] [place] [address], Ph. 10/21/2019 Esophageal Dysphagia; Gastroesophageal R eflux Disease without Esophagitis; [place] Diet Sanjay Martinez MD: [id number] [address], [address], [place] [address], Ph. History of Present Illness Note: <p>pt is here for a 2 wk f/u on EGD-AR</p><p>24 y/o WM pt of Dr. Morton rtc forf/u after EGD which showed gastritis and bx confirmed this and showed no H. pylori. Pt has been taking daily PPI and following bland diet. He has had no further problems. He forgot his med 2 days [address] and had return of sx. </p>Review of Systems: ROS as noted in the [...] lip ulcers. Oropharynx: moist mucous mem branes Lungs: Respiratory effort: no dyspn ea
--- OUTSIDE RECORDS SUMMARY | 2020-02-09 21:21 | XMS REPORT ---
:1995 Author Organization [facility] t Address [address] [place] [address] Care Team Providers Name Role Phone Unavailable Unavailable Unavailable Problems Condition Condition Condition Status Onset Resolution Last Treatin g Comments Name Details Category Date Date Treatment Clinician Date Autistic Autistic Problem Active disorder Disorder 10-21 00:00: 00 Anxiety Anxiety Problem Active 10-21 00:00: 00 Allergies, Adverse Reactions, Alerts This patient has no known allergies or adverse reactions. Medications Ordered Filled Start Stop Current Ordering Indication Dosage Frequency Signature Comments Components Medication Medication Date Date Medication? Clinician (SIG) Name Name alprazolam alprazolam No 2 BID alprazolam 0.25 mg 0.25 mg 0.25 mg tablet Take tablet Take tablet 2 tablets 2 tablets Take 2 twice a day twice a day tablets by oral by oral twice a route for route for day by 25 days. 25 days. oral route for 25 days. ibuprofen ibuprofen No ibuprofen 600 mg 600 mg 600 mg tablet tablet tablet omeprazole omeprazole No omeprazole 20 mg 20 mg 20 mg capsule,del capsule,del capsule, de ayed ayed layed release release release TAKE ONE TAKE ONE TAKE ONE (1) (1) (1) CAPSULE(S) CAPSULE(S) CAPSULE(S) BY BY BY MOUTHONCE A MOUTHONCE A MOUTHONC E DAY. DAY. A DAY. omeprazole omeprazole No omeprazole 40 mg 40 mg 40 mg capsule,del capsule,del capsule, de ayed ayed layed release release release Vital Signs Vital Name Observation Time Observation Value Comments BP Diastolic 2019-11-18 00:00:00 90 mm[Hg] Height 2019-11-18 00:00:00 73 [in_i] BP Systolic 2019-11-18 00:00:00 116 mm[Hg] Body Weight 2019-11-18 00:00:00 277.6 [lb_av] BP Diastolic 2019-10-21 00:00:00 87 mm[Hg] Height 2019-10-21 00:00:00 73 [in_i] BP Systolic 2019-10-21 00:00:00 133 mm[Hg] Body Weight 2019-10-21 00:00:00 278.8 [lb_av] Procedures and Interventions Procedure Date / Time Performed Performing Clinici an Biopsy of Stomach 2019-10-30 00:00:00 Extraction of [place] Tooth Repair of Cleft Palate Myringotomy and Insertion of Tympanic Ventilation Tube Encounters Start End Encounter Admission Attending Care Care Encounter Date/Time Date/Time Type Type Clinicians Facility Department ID 2019-11-18 2019-11-18 Sanjay LASSITER [place] - [id number] 00:00:00 00:00:00 Mitchell Martinez MD: [id number] [employer] [address] [facility], [place], [facility] [place] [address], Ph. 2019-10-21 2019-10-21 Sanjay LASSITER [place] - [id number] 00:00:00 00:00:00 Mitchell Martinez MD: [id number] [employer] [address] [facility], [facility] [place] [address], Ph. 2017-11-09 2017-11-09 Outpatient [facility] [id number] 00:00:00 00:00:00 2017-10-12 2017-10-12 Outpatient [facility] [id number] 09:24:10 09:24:10
[2020-02-09] MEDS ORDERED: KETOROLAC 30 MG/ML INJ ONE (21:47)
[2020-02-09 22:45] LABS: Protime INR 1.08
[2020-02-09 22:46] LABS: Absolute Lymphocytes (CBC) 2.9 K/uL (0.7-4.9); Basophils % 0.3 % (0-1.3); Hematocrit 49.1 % (39.6-49.0); Lymphocytes % 32.1 % (15.3-44.8); MPV 9.6 fL (7.6-11.3); RBC Red Blood Cell Count 5.57 M/uL (4.33-5.43)
[2020-02-09 23:01] LABS: ALT/SGPT 40 U/L (12-78); AST/SGOT 19 U/L (15-37); Albumin 4.2 g/dL (3.4-5.0); Alkaline Phosphatase 93 U/L (45-117); BUN Blood Urea Nitrogen 11 mg/dL (7-18); Bicarbonate 26 mmol/L (21-32); Bilirubin Direct 0.2 mg/dL (0-0.2); Bilirubin Total 0.4 mg/dL (0.2-1.0); Glucose Level 80 mg/dL (74-106); NT PRO-BNP 37 pg/mL (<125); Potassium 3.7 mmol/L (3.5-5.1); Protein, Total 7.8 g/dL (6.4-8.2); Sodium Level 143 mmol/L (136-145); Troponin (Emerg Dept Use Only) < 0.02 ng/mL (0.0-0.045)
--- NOTE | 2020-02-09 23:33 | ER ---
Nurse's Notes [facility] Name: Stuart Rodriguez Age: 24 yrs Sex: Male : 1995 Arrival Date: 02/09/2020 Time: 21:10 Bed 4 Private MD: Diagnosis: Other chest pain Presentation: 02/08 21:20 Chief complaint: Patient states: Chest pain since Sunday with dizziness and SOB. ll1 Coronavirus screen: Proceed with normal triage. Patient denies a cough. Patient reports shortness of breath or difficulty breathing. Patient denies measured and/or subjective temperature greater than 100.4F prior to today's visit. Patient denies travel on a cruise ship or to a country the [facility] currently lists as an affected area. Patient denies contact with known and/or suspected case of COVID-19. Ebola Screen: Patient denies travel to an Ebola-affected area in the 21 days before illness onset. Initial Sepsis Screen: Does the patient meet any 2 criteria? No. Patient's initial sepsis screen is negative. Does the patient have a suspected source of infection? No. Patient's initial sepsis screen is negative. Risk Assessment: Do you want to hurt yourself or someone else? Patient reports no desire to harm self or others. Onset of symptoms was February 06, 2020. 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 - Social history:: Patient/guardian denies using alcohol, street drugs, tobacco products, Smoking status: Patient denies any tobacco usage or history of. Screenin:30 Abuse screen: Denies threats or abuse. Nutritional screening: No deficits noted. jb4 Tuberculosis screening: No symptoms or risk factors identified. Fall Risk IV access (20 points). Total Alonzo Fall Scale indicates No Risk (0-24 pts). Assessment: 21:30 General: Appears in no apparent distress. uncomfortable, Behavior is calm, cooperative, jb4 appropriate for age. Pain: Complains of pain in mid-sternal area and epigastric area Pain does not radiate. Pain currently is 8 out of 10 on a pain scale. Quality of pain is described as pressure, Pain began 2-3 days ago. Is continuous. Neuro: Level of Consciousness is awake, alert, obeys commands, Oriented to person, place, time, situation. Cardiovascular: Patient's skin is warm and dry. Rhythm is sinus rhythm. Respiratory: Reports shortness of breath at rest on exertion Airway is patent Respiratory effort is even, unlabored, Respiratory pattern is regular, symmetrical, Breath sounds are clear bilaterally. the patient has mild shortness of breath. GI: Abdomen is non-distended, obese, Bowel sounds present X 4 quads. Abd is soft and non tender X 4 quads. Reports upper abdominal pain, nausea. : No signs and/or symptoms were reported regarding the genitourinary system. EENT: No signs and/or symptoms were reported regarding the EENT system. Derm: Skin is intact, Skin is pink, warm \T\ dry. Musculoskeletal: Circulation, motion, and sensation intact. Range of motion: intact in all extremities. 22:27 Reassessment: Patient appears in no apparent distress at this time. Patient and/or jb4 family updated on plan of care and expected duration. Pain level reassessed. Patient is alert, oriented x 3, equal unlabored respirations, skin warm/dry/pink. 23:00 Reassessment: Patient appears in no apparent distress at this time. Patient and/or jb4 family updated on plan of care and expected duration. Pain level reassessed. Patient is alert, oriented x 3, equal unlabored respirations, skin warm/dry/pink. Pt reports pain has decreased to 6/10 denies wanting further pain medication. Patient states feeling better. 23:40 Reassessment: Patient appears in no apparent distress at this time. Patient and/or jb4 family updated on plan of care and expected duration. Pain level reassessed. Patient is alert, oriented x 3, equal unlabored respirations, skin warm/dry/pink. Physician decision to D/c patient. Pt and grandmother verbalized understanding of D/C and follow up instructions. Denies questions or concerns. Ambulated out of ED with steady gait. Vital Signs: 21:20 BP 116 / 91; Pulse 85; Resp 18; Temp 99.2; Pulse Ox 96% ; Pain 7/10; ll1 22:00 BP 116 / 82; Pulse 68; Resp 17; Pulse Ox 97% on R/A; jb4 23:00 BP 106 / 76; Pulse 72; Resp 13; Pulse Ox 96% on R/A; jb4 ED Course: 21:10 Patient arrived in ED. cl3 21:13 Owen Adan MD is Attending Physician. tw4 21:13 Ryder Silva, RN is Primary Nurse. jb4 21:22 Triage completed. ll1 21:25 Arm band placed on Patient placed in an exam room, on a stretcher. ll1 21:30 Patient has correct armband on for positive identification. Bed in low position. Call jb4 light in reach. Side rails up X 1. campus monitor on. Pulse ox on. NIBP on. 21:30 Initial lab(s) drawn, by me, sent to lab. Inserted saline lock: 20 gauge in right jb4 antecubital area, using aseptic technique. Blood collected. Patient maintains SpO2 saturation greater than 95% on room air. 21:33 Troponin (emerg Dept Use Only) Sent. jb4 21:33 PT-INR Sent. jb4 21:33 NT PRO-BNP Sent. jb4 21:33 Magnesium Sent. jb4 21:33 LFT's Sent. jb4 21:33 CBC with Diff Sent. jb4 21:33 Basic Metabolic Panel Sent. jb4 21:47 EKG done, by ED staff, reviewed by Owen Adan MD. jb4 21:52 XRAY Chest (1 view) In Process Unspecified. EDMS 23:40 No provider procedures requiring assistance completed. IV discontinued, intact, jb4 bleeding controlled, No redness/swelling at site. Pressure dressing applied. Administered Medications: 21:51 Drug: TORadol 30 mg Route: IVP; Site: right antecubital; jb4 22:52 Follow up: Response: No adverse reaction; Pain is decreased jb4 Intake: 20:30 IV: 1000ml; Total: 1000ml. jb4 Outcome: 23:32 Discharge ordered by . tw4 23:40 Discharged to home ambulatory, with family. jb4 23:40 Condition: stable 23:40 Discharge instructions given to patient, family, Instructed on discharge instructions, follow up and referral plans. Demonstrated understanding of instructions, follow-up care. 23:45 Patient left the ED. jb4 Signatures: Dispatcher [employer] EDRyder Gonsalez RN RN jb4 Owen Adan MD MD tw4 Mita Reyez cl3 Claribel Reyez RN RN ll1
--- NOTE | 2020-02-09 23:33 | EDPHYS ---
Physician Documentation [facility] Name: Stuart Rodriguez Age: 24 yrs Sex: Male : 1995 Arrival Date: 02/09/2020 Time: 21:10 Bed 4 Private MD: ED Physician Owen Adan HPI: 02/08 23:23 This 24 yrs old Male presents to ER via Ambulatory with complaints of Chest tw4 Pain. 23:23 The patient or guardian reports chest pain that is located primarily in the anterior tw4 chest wall. The pain radiates to epigastric area. Associated signs and symptoms: The patient has no apparent associated signs or symptoms. The chest pain is described as dull. Modifying factors: The symptoms are alleviated by nothing. the symptoms are aggravated by nothing. Severity of pain: At its worst the pain was moderate in the emergency department the pain is unchanged. The patient has not experienced similar symptoms in the past. 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 - Social history:: Patient/guardian denies using alcohol, street drugs, tobacco products, Smoking status: Patient denies any tobacco usage or history of. ROS: 23:23 Constitutional: Negative for fever, chills, and weight loss, Eyes: Negative for injury, tw4 pain, redness, and discharge, Respiratory: Negative for shortness of breath, cough, wheezing, and pleuritic chest pain, Abdomen/GI: Negative for abdominal pain, nausea, vomiting, diarrhea, and constipation, Back: Negative for injury and pain, MS/Extremity: Negative for injury and deformity, Skin: Negative for injury, rash, and discoloration, Neuro: Negative for headache, weakness, numbness, tingling, and seizure. 23:23 Cardiovascular: Positive for chest pain, Negative for edema, orthopnea, palpitations, paroxysmal nocturnal dyspnea. Exam: 23:23 Constitutional: This is a well developed, well nourished patient who is awake, alert, tw4 and in no acute distress. Head/Face: Normocephalic, atraumatic. Chest/axilla: Normal chest wall appearance and motion. Nontender with no deformity. No lesions are appreciated. Cardiovascular: Regular rate and rhythm with a normal S1 and S2. No gallops, murmurs, or rubs. Normal PMI, no JVD. No pulse deficits. Respiratory: Lungs have equal breath sounds bilaterally, clear to auscultation and percussion. No rales, rhonchi or wheezes noted. No increased work of breathing, no retractions or nasal flaring. Abdomen/GI: Soft, non-tender, with normal bowel sounds. No distension or tympany. No guarding or rebound. No evidence of tenderness throughout. Back: No spinal tenderness. No costovertebral tenderness. Full range of motion. MS/ Extremity: Pulses equal, no cyanosis. Neurovascular intact. Full, normal range of motion. Neuro: Awake and alert, GCS 15, oriented to person, place, time, and situation. Cranial nerves II-XII grossly intact. Motor strength 5/5 in all extremities. Sensory grossly intact. Cerebellar exam normal. Normal gait. Vital Signs: 21:20 BP 116 / 91; Pulse 85; Resp 18; Temp 99.2; Pulse Ox 96% ; Pain 7/10; ll1 22:00 BP 116 / 82; Pulse 68; Resp 17; Pulse Ox 97% on R/A; jb4 23:00 BP 106 / 76; Pulse 72; Resp 13; Pulse Ox 96% on R/A; jb4 MDM: 21:13 Patient medically screened. tw4 23:45 Differential diagnosis: acute pericarditis, coronary artery disease chest wall pain, tw4 pulmonary embolus, stable angina. Data reviewed: vital signs, nurses notes. Data interpreted: Pulse oximetry: Interpretation: normal. Counseling: I had a detailed discussion with the patient and/or guardian regarding: the historical points, exam findings, and any diagnostic results supporting the discharge/admit diagnosis. Special discussion: Based on the patient's history, exam, and Dx evaluation, there is no indication for emergent intervention or inpatient Tx. It is understood by the patient/guardian that if the Sx's persist or worsen they need to return immediately for re-evaluation. I discussed with the patient/guardian in detail that at this point there is no indication for admission to the hospital. It is understood, however, that if the symptoms persist or worsen the patient needs to return immediately for re-evaluation. 02/08 21:17 Order name: Basic Metabolic Panel; Complete Time: 23:22 02/08 23:22 Interpretation: Normal except: CL 108. 02/08 21:17 Order name: CBC with Diff; Complete Time: 23:22 02/08 23:22 Interpretation: Normal except: RBC 5.57; HCT 49.1. 02/08 21:17 Order name: LFT's; Complete Time: 23:22 02/08 23:23 Interpretation: Normal except: GLOB 3.6. 02/08 21:17 Order name: Magnesium; Complete Time: 23:22 02/08 23:23 Interpretation: Within normal limits: MG 2.0. 02/08 21:17 Order name: NT PRO-BNP; Complete Time: 23:22 02/08 23:23 Interpretation: Within normal limits: NT PRO-BNP 37. 02/08 21:17 Order name: PT-INR; Complete Time: 23:22 02/08 23:23 Interpretation: Abnormal: PT 12.7. 02/08 21:17 Order name: Troponin (emerg Dept Use Only); Complete Time: 23:22 02/08 23:23 Interpretation: Within normal limits: TROPED < 0.02. 02/08 21:17 Order name: XRAY Chest (1 view) 02/08 21:17 Order name: EKG; Complete Time: 21:18 02/08 21:17 Order name: Cardiac monitoring; Complete Time: 21:44 02/08 21:17 Order name: EKG - Nurse/Tech; Complete Time: 21:44 02/08 21:17 Order name: IV Saline Lock; Complete Time: 21:33 02/08 21:17 Order name: Labs collected and sent; Complete Time: 21:33 02/08 21:17 Order name: O2 Per Protocol; Complete Time: 21:33 02/08 21:17 Order name: O2 Sat Monitoring; Complete Time: 21:33 tw4 Administered Medications: 21:51 Drug: TORadol 30 mg Route: IVP; Site: right antecubital; jb4 22:52 Follow up: Response: No adverse reaction; Pain is decreased jb4 Disposition: 02/09/20 23:32 Discharged to Home. Impression: Other chest pain. - Condition is Stable. - Discharge Instructions: Nonspecific Chest Pain. - Medication Reconciliation Form, Thank You Letter, Antibiotic Education, Prescription Opioid Use form. - Follow up: Private Physician; When: Upon discharge from the Emergency Department; Reason: Recheck today's complaints, Continuance of care, Re-evaluation by your physician. - Problem is new. - Symptoms have improved. Signatures: Dispatcher [employer] EDRyder Gonsalez RN RN jb4 Owen Adan MD MD tw4 Claribel Reyez RN RN ll1 Corrections: (The following items were deleted from the chart) 23:45 23:32 02/09/2020 23:32 Discharged to Home. Impression: Other chest pain. Condition is jb4 Stable. Forms are Medication Reconciliation Form, Thank You Letter, Antibiotic Education, Prescription Opioid Use. Follow up: Private Physician; When: Upon discharge from the Emergency Department; Reason: Recheck today's complaints, Continuance of care, Re-evaluation by your physician. Problem is new. Symptoms have improved. tw4
[2020-02-09 23:51] VITALS: TEMP 99.2
[2020-02-09 23:54] VITALS: BP 106/76; O2SAT 96
--- NOTE | 2020-02-10 10:52 | RAD REPORT ---
EXAM DESCRIPTION: RAD - Chest Single View - 02/09/2020 9:52 pm CLINICAL HISTORY: CHEST PAIN Chest pain. COMPARISON: Chest Single View dated 03/18/2017; Chest Single View dated 08/13/2016 FINDINGS: Portable technique limits examination quality. The lungs are grossly clear. The heart is normal in size. No displaced fractures. IMPRESSION: No acute intrathoracic process suspected.
--- NOTE | 2020-02-10 11:36 | EKG ---
Test Date: 2020-02-09 Test Time: 21:41:02 Otologist: ADRIAN MEASUREMENT RESULTS: Intervals: Rate: 66 DC: 138 QRSD: 100 QT: 412 QTc: 431 [place]: P: 29 DC: 138 QRS: 25 T: 31 INTERPRETIVE STATEMENTS: Normal sinus rhythm with sinus arrhythmia Incomplete right bundle branch block Borderline ECG Compared to ECG 09/01/2019 14:09:59 Incomplete right bundle-branch block now present Electronically Signed On 02-10-20 11:34:50 CDT by Ryan Edwards
== END 2020-02-09 23:45 | disposition home or self-care (01) ==
LOC: ER 21:08
DX: R07.89 Other chest pain (principal)
CPT/HCPCS: 36415; 71045; 80048; 80076; 83735; 83880; 84484; 85025; 85610; 93005; 96374; 99285